=== PATIENT | male | born 1985 | race Caucasian/White ===

== ENCOUNTER → 2016-05-17 | Outpatient (CLI) | payer BC ==
--- NOTE | 2016-05-20 15:35 | MR ---
EXAM DATE: 05/17/16 PATIENT'S AGE: 30 Patient: JANE LANDRY Facility: [place], [place] Site . Site : 1985 Study: MRI Spine Thoracic [id number] 6:44:40 PM Ordering Physician: Sara Mckeon Final Report: Indication: Thoracic back pain. Comparison: None. Technique: Sagittal T1, T2 and STIR sequences. Axial T1 and T2 weighted sequences. Findings: Normal vertebral body facet alignment. No fractures. No vertebral body loss of height. No spondylolisthesis. No ligamentous injury. Normal marrow signal. Normal cord signal. No intradural mass or lesion. No significant spondylotic changes. Minimal posterior disk bulging at T4-5 and T5-6 with no spinal canal or neural foraminal narrowing. Mild posterior disk bulging at T11-12 with no spinal canal or neural foraminal narrowing. No spinal canal or neural foraminal narrowing at the remaining levels. Normal paraspinal soft tissues. Impression: 1. Normal alignment. No fractures. No spondylolisthesis. 2. Normal cord signal. 3. No spinal canal or neural foramina narrowing at the remaining levels. 4. No significant thoracic spondylosis Dictated by Louie Polanco MD @ May 18 2016 8:19AM (Electronic Signature) Report Signed by Proxy and Original Signed Document filed in the Medical Record. [facility]
== END ==
LOC: MW.MRI 17:52
PROVIDERS: ATTEND Student in an Organized Health Care Education/Training Program
DX: M54.6 Pain in thoracic spine (principal); M54.5 Low back pain
CPT/HCPCS: 72146; 72146-26

== ENCOUNTER 2017-04-13 20:42 | Emergency (ER) | payer SELFPAY ==
--- NOTE | 2017-04-13 21:18 | EDM.PDOC ---
ED HPI GENERAL MEDICAL PROBLEM - General Chief Complaint: General Stated Complaint: PT HAS FLU SYMPTOMS Time Seen by Provider: 04/13/17 21:15 - History of Present Illness INITIAL COMMENTS - FREE TEXT/NARRATIVE: HISTORY AND PHYSICAL: History of present illness: Patient 31-year-old white male presents with a concern of cough congestion bodyaches 1-2 days concern about influenza screening he denies vomiting diarrhea or other concern Review of systems: As per history of present illness and below otherwise all systems reviewed and negative. Past medical history: As per history of present illness and as reviewed below otherwise noncontributory. Surgical history: As per history of present illness and as reviewed below otherwise noncontributory. Social history: No reported history of drug or alcohol abuse. Family history: As per history of present illness and as reviewed below otherwise noncontributory. Physical exam: HEENT: Atraumatic, normocephalic, pupils reactive, negative for conjunctival pallor or scleral icterus, mucous membranes moist, throat clear, neck supple, nontender, trachea midline. Lungs: Clear to auscultation, breath sounds equal bilaterally, chest nontender. Heart: S1S2, regular, negative for clicks, rubs, or JVD. Abdomen: Soft, nondistended, nontender. Negative for masses or hepatosplenomegaly. Negative for costovertebral tenderness. Pelvis: Stable nontender. Genitourinary: Deferred. Rectal: Deferred. Extremities: Atraumatic, negative for cords or calf pain. Neurovascular unremarkable. Neuro: Awake, alert, oriented. Cranial nerves II through XII unremarkable. Cerebellum unremarkable. Motor and sensory unremarkable throughout. Exam nonfocal. Diagnostics: Influenza screen Therapeutics: None Impression: #1 viral syndrome Definitive disposition and diagnosis as appropriate pending reevaluation and review of above. body aches Pain Score (Numeric/FACES): 8 - Related Data Allergies Allergy/AdvReac Type Severity Reaction Status Date / Time Penicillins Allergy Rash Verified 04/13/17 20:53 Home Meds: Home Meds . [No Known Home Meds] 01/12/16 [History] Past Medical History - Past Health History Medical/Surgical History: Denies Medical/Surgical History Social & Family History - Tobacco Use Smoking Status *Q: Never Smoker Second Hand Smoke Exposure: No - Alcohol Use Days Per Week of Alcohol Use: 1 Number of Drinks Per Day: 1 Total Drinks Per Week: 1 - Recreational Drug Use Recreational Drug Use: No ED ROS GENERAL - Review of Systems Review Of Systems: ROS reveals no pertinent complaints other than HPI. ED EXAM, GENERAL - Physical Exam Exam: See Below (Dictation) Course - Vital Signs Last Recorded V/S: Last Vital Signs Temp 37.7 C 04/13/17 20:54 Pulse 109 H 04/13/17 20:54 Resp 18 04/13/17 20:54 BP 149/97 H 04/13/17 20:54 Pulse Ox 97 04/13/17 20:54 Departure - Departure Time of Disposition: 22:06 Disposition: Home, Self-Care 01 Condition: Good Clinical Impression: Influenza - Discharge Information Referrals: PCP,None [Primary Care Provider] - Forms: ED Department Discharge Additional Instructions: The following information is given to patients seen in the emergency department who are being discharged to home. This information is to outline your options for follow-up care. We provide all patients seen in our emergency department with a follow-up referral. The need for follow-up, as well as the timing and circumstances, are variable depending upon the specifics of your emergency department visit. If you don't have a primary care physician on staff, we will provide you with a referral. We always advise you to contact your personal physician following an emergency department visit to inform them of the circumstance of the visit and for follow-up with them and/or the need for any referrals to a consulting specialist. The emergency department will also refer you to a specialist when appropriate. This referral assures that you have the opportunity for followup care with a specialist. All of these measure are taken in an effort to provide you with optimal care, which includes your followup. Under all circumstances we always encourage you to contact your private physician who remains a resource for coordinating your care. When calling for followup care, please make the office aware that this follow-up is from your recent emergency room visit. If for any reason you are refused follow-up, please contact the [facility] emergency department at and asked to speak to the emergency department charge nurse. Tamiflu as prescribed Motrin/Tylenol as directed push fluids return as needed as discussed
[2017-04-13 22:29] VITALS: BP 157/95
== END 2017-04-13 22:21 | disposition home or self-care (01) ==
LOC: MW.ED 20:42
DX: J10.1 Influenza due to other identified influenza virus with other respiratory manifestations (principal); B34.9 Viral infection, unspecified; Z88.0 Allergy status to penicillin
CPT/HCPCS: 87804; 99283

== ENCOUNTER 2021-07-15 17:36 | Emergency (ER) | payer BC ==
[2021-07-15] MEDS ORDERED: Ibuprofen 600 MG Tab PO ONE (17:50)
[2021-07-15] MEDS ORDERED: Cephalexin 500 MG Cap PO ONE (17:50)
[2021-07-15 18:14] VITALS: BP 151/71; PULSE 80
== END 2021-07-15 18:12 | disposition home or self-care (01) ==
LOC: MW.ED 17:36
DX: K03.81 Cracked tooth (principal); K04.7 Periapical abscess without sinus; I10 Essential (primary) hypertension; Z88.0 Allergy status to penicillin; Z79.899 Other long term (current) drug therapy; Z86.16 Personal history of COVID-19
CPT/HCPCS: 99282; A9270

== ENCOUNTER 2023-05-07 20:34 | Emergency (ER) | payer SELFPAY ==
[2023-05-07 21:30] LABS: BASOPHILS ABSOLUTE AUTO 0.07 K/uL (0.00-0.20); BASOPHILS PERCENT AUTO 0.7 % (0.0-1.0); EOSINOPHILS ABSOLUTE AUTO 0.22 K/uL (0.00-0.45); EOSINOPHILS PERCENT AUTO 2.3 % (0.0-6.0); HEMATOCRIT 45.7 % (42.0-52.0); HEMOGLOBIN 15.7 g/dL (14.0-18.0); IMMATURE GRAN ABSOLUTE AUTO 0.02 K/uL (0.00-0.05); IMMATURE GRAN PERCENT AUTO 0.2 % (0.0-0.4); LYMPHOCYTES PERCENT AUTO 39.4 % (24.0-44.0); MEAN CORPUSCULAR HEMOGLOBIN 28.9 pg (28.0-32.0); MEAN CORPUSCULAR HGB CONC 34.4 g/dL (32.0-36.0); MEAN PLATELET VOLUME 10.2 fL (9.4-12.4); MONOCYTES PERCENT AUTO 6.2 % (0.0-8.0); NEUTROPHILS ABSOLUTE AUTO 4.93 K/uL (1.80-7.70); NEUTROPHILS PERCENT AUTO 51.2 % (41.0-71.0); PLATELET COUNT,PLT 253 K/uL (150-400); RED BLOOD CELL COUNT 5.44 M/uL (4.52-5.90); WHITE BLOOD CELL COUNT,WBC 9.64 K/uL (3.9-11.3)
[2023-05-07 21:35] LABS: CORONAVIRUS COVID-19 NAA NEGATIVE (NEGATIVE); INFLUENZA A NAA NEGATIVE (NEGATIVE); INFLUENZA B NAA NEGATIVE (NEGATIVE)
[2023-05-07 22:04] LABS: A/G RATIO 1.1 (0.9-1.6); ALANINE AMINOTRANSFERASE,ALT 68 IU/L (14-63); ALBUMIN 4.1 g/dL (3.4-5.0); ALKALINE PHOSPHATASE 70 U/L (46-116); ASPARTATE AMNIOTRANSFERASE,AST 26 IU/L (15-37); BILIRUBIN TOTAL 0.3 mg/dL (0.2-1.0); BLOOD UREA NITROGEN,BUN 21 mg/dL (7.0-18.0); CALCIUM 9.2 mg/dL (8.5-10.1); CARBON DIOXIDE,CO2 24.5 mmol/L (21.0-32.0); CHLORIDE,CL 104 mmol/L (98-107); CREATININE 1.2 mg/dL (0.8-1.3); ESTIMATED GFR 80 mL/min (>60); GLUCOSE RANDOM 112 mg/dL (74-106); POTASSIUM,K 3.8 mmol/L (3.5-5.1); SODIUM,NA 141 mmol/L (136-148)
[2023-05-07] MEDS: Acetaminophen/Codeine 120-12 MG/5 ML Soln 5 ML UD Cup PO ONE (22:05)
[2023-05-07] MEDS: Azithromycin 250 MG Tab PO STA (22:06)
[2023-05-07 22:12] VITALS: BP 143/94; PULSE 91
== END 2023-05-07 22:11 | disposition home or self-care (01) ==
LOC: MW.ED 20:34
DX: J40 Bronchitis, not specified as acute or chronic (principal); Z88.0 Allergy status to penicillin; Z79.899 Other long term (current) drug therapy; Z86.16 Personal history of COVID-19
CPT/HCPCS: 0240U; 36415; 71045; 80053; 84484; 85025; 99285; A9270; 93010; 99283